=== PATIENT | female | born 1950 | race Hispanic/Latino ===

== ENCOUNTER 2016-08-14 14:48 | Emergency (ER) | payer MEDICARE, OTHER ==
[2016-08-14 14:59] VITALS: RESP 18; TEMP 98.3; O2SAT 97; BMI 27.8
[2016-08-14] MEDS ORDERED: Naproxen 550 mg Tab PO ONE (15:08)
--- NOTE | 2016-08-14 15:16 | ED PDOC ---
Arrival/HPI - General Historian: Patient - History of Present Illness Time/Duration: Prior to Arrival Symptom Onset: Sudden Symptom Course: Unchanged Quality: Aching Context: Work - General Chief Complaint: Headache Time Seen by Provider: 08/14/16 14:53 - History of Present Illness Narrative History of Present Illness (Text): 08/14/16 15:18 Patient is a 65 y/o with PMH of syncope/fall presenting with fall while at work. 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 Patient's not sure if she hit her head. Patient c/o left sided rib pain, left side elbow, shoulder, and knee pain. Patient denies loc, denies cp, sob, n/v/d. (Kari Tao) Past Medical History - Provider Review Nursing Documentation Reviewed: Yes - Travel History Have you recently traveled outside [place] w/in the past 3 mons?: No - Infectious Disease Hx of Infectious Diseases: None - Tetanus Immunization Tetanus Immunization: Up to Date - Reproductive Menopause: Yes - Past Medical History Past Medical History: No Previous - Cardiac Hx Pacemaker: No - Pulmonary Hx Respiratory Disorders: No - Neurological Hx Paralysis: No - HEENT Hx HEENT Disorder: No - Renal Hx Renal Disorder: No - Endocrine/Metabolic Hx Endocrine Disorders: No - Hematological/Oncological Hx Blood Transfusions: No Hx Blood Transfusion Reaction: No - Integumentary Hx Dermatological Disorder: No - Musculoskeletal/Rheumatological Hx Musculoskeletal Disorders: No - Gastrointestinal Hx Gastroesophageal Reflux: Yes - Genitourinary/Gynecological Hx Genitourinary Disorders: No - Psychiatric Hx Emotional Abuse: No Hx Physical Abuse: No Hx Substance Use: No - Surgical History Hx Hysterectomy: Yes - Anesthesia Hx Anesthesia Reactions: No Hx Malignant Hyperthermia: No - Suicidal Assessment Feels Threatened In Home Enviroment: No Family/Social History - Physician Review Nursing Documentation Reviewed: Yes Family/Social History: No Known Family HX Smoking Status: Former Smoker Hx Alcohol Use: Yes (RARE WHEN OUT TO DINNER) Hx Substance Use: No Allergies/Home Meds Allergies/Adverse Reactions: Allergies No Known Allergies Allergy (Verified 08/14/16 14:59) Home Medications: Home Meds Medication Instructions Recorded Confirmed Lansoprazole [Prevacid] 30 mg PO DAILY 07/06/15 08/14/16 Loratadine [Claritin] 10 mg PO DAILY 08/14/16 08/14/16 Review of Systems - Physician Review All systems were reviewed & negative as marked: Yes - Review of Systems Constitutional: Normal Eyes: Normal ENT: Normal Respiratory: Normal Cardiovascular: Normal Gastrointestinal: Normal Genitourinary Female: Normal Musculoskeletal: Other (shoulder, elbow, hip and knee pain ) Skin: Normal Neurological: Headache (mild). absent: Dizziness, Focal Weakness, Gait Changes , Speech Changes, Disequilibrium, Seizure Endocrine: Normal Hemo/Lymphatic: Normal Psychiatric: Normal Physical Exam Vital Signs Reviewed: Yes Temperature: Afebrile Blood Pressure: Normal Pulse: Regular Respiratory Rate: Normal Appearance: Positive for: Well-Appearing, Non-Toxic, Comfortable Pain Distress: None Mental Status: Positive for: Alert and Oriented X 3 - Systems Exam Head: Present: Atraumatic, Normocephalic Pupils: Present: PERRL Conjunctiva: No: Icteric Mouth: Present: Moist Mucous Membranes Neck: Present: Normal Range of Motion. No: Meningeal Signs, MIDLINE TENDERNESS , JVD, Lymphadenopathy Respiratory/Chest: Present: Clear to Auscultation, Good Air Exchange. No: Respiratory Distress, Accessory Muscle Use, Wheezes, Rales, Retracting, Rhonchi , Tachypneic Cardiovascular: Present: Regular Rate and Rhythm, Normal S1, S2. No: Murmurs, Tachycardic, Bradycardic, Rub, Gallop Abdomen: Present: Normal Bowel Sounds. No: Tenderness, Distention, Rebound, Guarding, Scars Upper Extremity: Present: Normal Inspection, NORMAL PULSES, Tenderness (left elbow), Neurovascularly Intact. No: Cyanosis, Edema, Erythema, Deformity Lower Extremity: Present: Normal Inspection, NORMAL PULSES, Normal ROM, Tenderness (left hip), Neurovascularly Intact, Capillary Refill < 2 s. No: Edema, CALF TENDERNESS, Jael's Sign, Erythema, Deformity Neurological: Present: GCS=15 Skin: Present: Warm, Dry, Rashes, Normal Color Psychiatric: Present: Alert, Oriented x 3, Normal Insight, Normal Concentration Medical Decision Making Re-evaluation Time: 16:55 Reassessment Condition: Improved ED Course and Treatment: 08/14/16 16:03 Patient is a 65 y/o with PMH of syncope/fall s/p mechanical fall while at work. r/o fractures. Plan: Left rib x-ray with A-P Left shoulder, elbow, ankle and hip x-ray. 08/14/16 16:53 Patient states the pain has improved. 08/14/16 17:14 Extremities and rib x-ray are all normal, patient to be discharged home. ( Kari Tao) 08/14/16 17:23 pt seen with resident. s/p mechanical fall. imaging neg as read by me. pain controled. ambulatory in nad. advise outpt f/u and return precautions (Octaviano Huang) - RAD Interpretation Narrative RAD Interpretations (Text): 08/14/16 17:18 Normal left rib A/P x-ray Normal left elbow, shoulder, and knee x-ray. (Kari Tao) Radiology Orders: 08/14/16 15:02 ELBOW LEFT 3 VIEWS ROUTINE [RAD] Stat HIP MIN 2V W/ PELVIS LT [RAD] Stat 08/14/16 15:05 KNEE LEFT 2 VIEWS (AP & LAT) [RAD] Stat 08/14/16 15:07 RIBS LEFT & PA CHEST [RAD] Stat 08/14/16 15:32 SHOULDER LEFT [RAD] Stat - Medication Orders Current Medication Orders: Discontinued Medications Acetaminophen (Tylenol 325mg Tab) 650 mg PO STAT STA Stop: 08/14/16 15:34 Last Admin: 08/14/16 15:55 Dose: 650 mg Naproxen (Anaprox Ds) 550 mg PO ONCE ONE Stop: 08/14/16 15:09 Last Admin: 08/14/16 15:10 Dose: Disposition/Present on Arrival - Present on Arrival Any Indicators Present on Arrival: No History of DVT/PE: No History of Uncontrolled Diabetes: No Urinary Catheter: No History of Decub. Ulcer: No History Surgical Site Infection Following: None - Disposition Have Diagnosis and Disposition been Completed?: Yes Disposition Time: 22:13 Patient Plan: Discharge - Disposition Diagnosis: Accident due to mechanical fall without injury Disposition: HOME/ ROUTINE Patient Problems: Current Active Problems Problem Status Onset Accident due to mechanical fall without injury Acute Condition: GOOD Discharge Instructions (ExitCare): Fall Prevention (ED) Additional Instructions: Please follow up with your primary care doctor. Return to the emergency room if symptoms worsens or if you have any other symptoms. Referrals: Senia Black MD [Primary Care Provider] - Follow up with primary
[2016-08-14 16:27] VITALS: BP 130/65; PULSE 75
--- NOTE | 2016-08-14 16:29 | RAD ---
PROCEDURE: Left Hip and pelvis X-ray Radiographs. HISTORY: s/p fall COMPARISON: None. FINDINGS: BONES: Normal. No fracture. JOINTS: Normal. SOFT TISSUES: Normal. OTHER FINDINGS: None. IMPRESSION: Negative study
--- NOTE | 2016-08-15 08:24 | RAD ---
PROCEDURE: Left Knee Radiographs. HISTORY: Pain. COMPARISON: None. FINDINGS: BONES: Normal. No fracture. JOINTS: Normal. No osteoarthritis. JOINT EFFUSION: None. OTHER FINDINGS: None. IMPRESSION: Normal radiographs of the left knee.
--- NOTE | 2016-08-15 08:24 | RAD ---
PROCEDURE: Radiographs of the left elbow. HISTORY: s/p fal COMPARISON: No prior. FINDINGS: BONES: Normal. No fracture. JOINTS: Normal. No osteoarthritis. SOFT TISSUES: Normal. JOINT EFFUSION: None. OTHER FINDINGS: None IMPRESSION: Unremarkable radiographs of the left elbow.
--- NOTE | 2016-08-15 08:25 | RAD ---
PROCEDURE: Radiographs of the Left Shoulder HISTORY: trauma COMPARISON: No prior. FINDINGS: BONES: Normal. No fracture. JOINTS: Normal. Glenohumeral and acromioclavicular joints preserved. No osteoarthritis. SOFT TISSUES: Normal. OTHER FINDINGS: None. IMPRESSION: Normal radiographs of the left shoulder.
--- NOTE | 2016-08-15 08:27 | RAD ---
PROCEDURE: Radiographs of the Chest and Left Ribs. HISTORY: s/p fall COMPARISON: None available. TECHNIQUE: Frontal radiograph of the chest and multiple oblique radiographs of the left ribs were obtained. FINDINGS: LEFT RIBS: No fracture or focal lesion visualized. LUNGS: Clear. PLEURA: No pneumothorax or pleural fluid. CARDIOVASCULAR: Normal sized heart. No pulmonary vascular congestion. OTHER FINDINGS: None. IMPRESSION: Unremarkable radiographs of the chest and left ribs. No left rib fracture.
--- NOTE | 2016-08-16 01:26 | CARD ---
APPROVED REPORT EKG Measurement Heart [id number] PA [id number] <Conclusion> Normal sinus rhythm with sinus arrhythmia Normal ECG
== END 2016-08-14 17:00 | disposition home or self-care (01) ==
LOC: ED 14:48
DX: Z03.89 Encounter for observation for other suspected diseases and conditions ruled out (principal); W01.0XXA Fall on same level from slipping, tripping and stumbling without subsequent striking against object, initial encounter

== ENCOUNTER 2017-04-08 11:05 | Day surgery (SDC) | payer MEDICARE ==
[2017-04-08 10:28] VITALS: BMI 26.3
[2017-04-08 11:24] VITALS: RESP 18
[2017-04-08 11:32] LABS: BASO # 0.04 K/mm3 (0.0-2.0); BASO % 0.5 % (0.0-3.0); EOS # 0.2 (0.0-0.7); EOS % 2.7 % (1.5-5.0); GRAN # 4.29 (1.4-6.5); GRAN % 58.6 % (50.0-68.0); HEMOGLOBIN 13.3 g/dL (12.0-16.0); LYMPH # 2.3 (1.2-3.4); MEAN CELL VOLUME 83.6 fl (80.0-105.0); MEAN CORPUSCULAR HEMOGLOBIN 26.9 pg (25.0-35.0); MEAN CORPUSCULAR HGB CONC 32.2 g/dl (31.0-37.0); MEAN PLATELET VOLUME 9.4 fl (7.0-11.0); MONO # 0.5 (0.1-0.6); MONO % 7.2 % (1.0-6.0); RBC 4.94 10^6/uL (3.5-6.1); RED CELL DISTRIBUTION WIDTH 17.3 % (11.5-14.5); WHITE BLOOD COUNT 7.3 10^3/ul (4.5-11.0)
[2017-04-08] MEDS ORDERED: Lidocaine 2% Inj (20ml) ONE (11:37)
[2017-04-08] MEDS ORDERED: Iodixanol 320 MG/ML 100 ML BOTTLE IV ONE (11:38)
[2017-04-08] MEDS ORDERED: HEPARIN SODIUM/NS 2,000 ML IV ONE (11:38)
[2017-04-08] MEDS ORDERED: Midazolam 2 MG/2 ML VIAL ONE ×2 (11:38→12:49)
[2017-04-08] MEDS ORDERED: Iodixanol 320 MG/ML 200 ML BOTTLE IV ONE (11:38)
[2017-04-08 11:41] LABS: BLOOD UREA NITROGEN 18 mg/dL (7-21); CALCIUM 9.9 mg/dL (8.4-10.5); GFR AFRICAN-AMERICAN > 60; GFR NON-AFRICAN AMERICAN > 60; HDL CHOLESTEROL 80 mg/dL (29-60)
[2017-04-08 11:52] LABS: LDL CHOLESTEROL 104 mg/dL (0-129)
[2017-04-08 11:54] LABS: INR 0.98 (0.93-1.08); PARTIAL THROMBOPLASTIN TIME 31.3 Seconds (25.1-36.5); PROTHROMBIN TIME 11.3 SECONDS (9.4-12.5)
[2017-04-08] MEDS ORDERED: Sodium Chloride 0.9% 1,000 ML IV SCH (13:30)
[2017-04-08 13:49] VITALS: TEMP 98.2
[2017-04-08 15:52] VITALS: O2SAT 98
[2017-04-08 17:50] VITALS: BP 132/78; PULSE 60
--- NOTE | 2017-04-09 00:27 | CARDCATH ---
PROCEDURE DATE: 04/08/2017 HISTORY: The patient is a 66-year-old woman, who presents with chest pain and progressive dyspnea. The patient's past medical history is notable for strong family history with sudden myocardial infarctions in her siblings as well as with her father. 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 The patient underwent a stress test in which there was reproducible exercise-induced angina as well as frequent PVCs. Because of this, cardiac catheterization was recommended. PROCEDURE: Left heart catheterization with coronary arteriography and left ventriculogram. The right femoral artery was cannulated with a 6-Swedish sheath. There were no complications. I performed moderate sedation, which included the presence of an independent trained observer that assisted in monitoring the patient's level of consciousness and physiologic status. After administration of Versed and fentanyl, my intra service time was 15 minutes. The findings on catheterization revealed a left ventricle that contracted normally. Estimated ejection fraction of 60-65%. Her coronary anatomy revealed a right dominant circulation. The RCA was free of significant disease. The left main artery was unremarkable. The LAD revealed minimal intimal irregularities without critical lesions. The second diagonal vessel revealed an ostial 60% stenosis noted. The circumflex artery and obtuse marginal branches were free of significant disease. Angio-Seal was used to close the femoral artery site. The patient tolerated the procedure well. In summary, the procedure revealed a borderline critical lesion of the ostium of the diagonal vessel. Normal LV function was noted with an EF of 60%. Given these findings, the patient's treatment should be medical therapy with daily aspirin as well as a cardiac risk reduction program. In addition, the patient needs to have her lungs evaluated given her life long history of being exposed to passive smoking from her father to her current boyfriend. I have discussed this with the family in detail. Andi Diaz MD
--- NOTE | 2017-04-09 09:48 | CARD ---
APPROVED REPORT EKG Measurement Heart [id number] TN [id number] <Conclusion> Normal sinus rhythm Normal ECG. No change
== END 2017-04-08 18:00 | disposition home or self-care (01) ==
LOC: CATH 11:05
PROVIDERS: ATTEND Internal Medicine Cardiovascular Disease
DX: I20.9 Angina pectoris, unspecified (principal); I49.3 Ventricular premature depolarization; R03.0 Elevated blood-pressure reading, without diagnosis of hypertension; Z82.41 Family history of sudden cardiac death
CPT/HCPCS: 36415; 80048; 80061; 85025; 85610; 85730; 86850; 86870; 86900; 93005; 93458; 99152; 99153; C1760; C1769; C1887 ×2; C2629; J1644; J2250; J3010; J7030; J7040; Q9967

== ENCOUNTER 2018-04-22 16:08 | Emergency (ER) | payer MEDICARE ==
[2018-04-22 16:08] VITALS: BMI 26.3
[2018-04-22 16:31] VITALS: RESP 18
--- NOTE | 2018-04-22 17:05 | ED PDOC ---
Arrival/HPI <Morro Nguyen - Last Filed: 04/22/18 20:30> - General Historian: Patient - History of Present Illness Narrative History of Present Illness (Text): 04/22/18 16:55 67 y/o female with PMH of chronic sinusitis presents to the ED with lightheadedness and bilateral ear ache for one week. Patient was treated by her PMD Dr Black for acute otitis media, just finished a course of antibiotic Cefuroxime but does not feel any improvement. She still have earache b/l, diffuse headache, maxillary tenderness. She denied fever, ear discharge, loss of hearing, cough, CP, SOB, palpitation. She is on meclizine for dizziness for over 2 years but it's not effective at present. Time/Duration: > week Symptom Onset: Gradual Symptom Course: Unchanged Context: Work <Slade Hernández - Last Filed: 04/23/18 13:03> - General Chief Complaint: Dizziness/Lightheaded Time Seen by Provider: 04/22/18 16:35 Past Medical History - Provider Review Nursing Documentation Reviewed: Yes - Infectious Disease Hx of Infectious Diseases: None - Tetanus Immunization Tetanus Immunization: Up to Date - Reproductive Menopause: Yes - Past Medical History Past Medical History: No Previous - Cardiac Hx Cardiac Disorders: No Hx Pacemaker: No - Pulmonary Hx Respiratory Disorders: No - Neurological Hx Paralysis: No - HEENT Hx HEENT Disorder: No - Renal Hx Renal Disorder: No - Endocrine/Metabolic Hx Endocrine Disorders: No - Hematological/Oncological Hx Blood Transfusions: Yes Hx Blood Transfusion Reaction: No - Integumentary Hx Dermatological Disorder: No - Musculoskeletal/Rheumatological Hx Musculoskeletal Disorders: No - Gastrointestinal Hx Gastroesophageal Reflux: Yes - Genitourinary/Gynecological Hx Genitourinary Disorders: No - Psychiatric Hx Emotional Abuse: No Hx Physical Abuse: No Hx Substance Use: No - Surgical History Hx Hysterectomy: Yes - Anesthesia Hx Anesthesia Reactions: No Hx Malignant Hyperthermia: No - Suicidal Assessment Feels Threatened In Home Enviroment: No <Slade Hernández - Last Filed: 04/23/18 13:03> Family/Social History - Physician Review Nursing Documentation Reviewed: Yes Family/Social History: No Known Family HX Smoking Status: Former Smoker Hx Alcohol Use: No Hx Substance Use: No <Slade Hernández - Last Filed: 04/23/18 13:03> Allergies/Home Meds <Morro Nguyen - Last Filed: 04/22/18 20:30> <BettySlade - Last Filed: 04/23/18 13:03> Allergies/Adverse Reactions: Allergies No Known Allergies Allergy (Verified 08/14/16 14:59) Review of Systems - Physician Review All systems were reviewed & negative as marked: Yes - Review of Systems Constitutional: Normal. absent: Fevers, Night Sweats Eyes: Normal ENT: Sinus Congestion, Other (b/l ear ache). absent: Hearing Changes, Tinnitus, TMJ Pain, Sore Throat Respiratory: Normal. absent: SOB, Cough, Sputum, Wheezing Cardiovascular: Normal. absent: Palpitations, Edema Gastrointestinal: Normal. absent: Constipation Genitourinary Female: Normal. absent: Dysuria, Frequency, Hematuria Musculoskeletal: Normal Skin: Normal Neurological: Headache, Dizziness. absent: Focal Weakness, Speech Changes, Facial Droop Endocrine: Normal Hemo/Lymphatic: Normal Psychiatric: Normal <Slade Hernández - Last Filed: 04/23/18 13:03> Physical Exam Vital Signs Temp Pulse Resp BP Pulse Ox 04/22/18 20:00 98.8 F 76 18 134/87 97 04/22/18 18:20 98.9 F 66 18 148/92 H 97 04/22/18 16:23 98.9 F 68 18 158/94 H 98 <Morro Nguyen - Last Filed: 04/22/18 20:30> Vital Signs Reviewed: Yes Vital Signs Temp Pulse Resp BP Pulse Ox 04/22/18 16:23 98.9 F 68 18 158/94 H 98 Temperature: Afebrile Blood Pressure: Normal Pulse: Regular Respiratory Rate: Normal Appearance: Positive for: Well-Appearing, Non-Toxic, Comfortable Pain Distress: None Mental Status: Positive for: Alert and Oriented X 3 - Systems Exam Head: Present: Atraumatic, Normocephalic Pupils: Present: PERRL Extroacular Muscles: Present: EOMI Conjunctiva: Present: Normal Ears: Present: TM Bulging, Fluid. No: TM Perf Mouth: Present: Dry Pharnyx: Present: Normal. No: ERYTHEMA, EXUDATE Nose (External): Present: Atraumatic Nose (Internal): Present: Normal Inspection Neck: Present: Normal Range of Motion Respiratory/Chest: Present: Clear to Auscultation, Good Air Exchange. No: Res piratory Distress Cardiovascular: Present: Regular Rate and Rhythm, Normal S1, S2 Abdomen: Present: Normal Bowel Sounds. No: Tenderness, Distention, Guarding Back: Present: Normal Inspection Upper Extremity: Present: Normal Inspection. No: Cyanosis, Edema Lower Extremity: Present: Normal Inspection. No: Edema Neurological: Present: GCS=15, CN II-XII Intact, Speech Normal, Motor Func Grossly Intact, Normal Sensory Function, Normal Cerebellar Funct, Norm Deep Tendon Reflexes Skin: Present: Warm, Dry, Normal Color. No: Rashes Psychiatric: Present: Alert, Oriented x 3, Normal Insight, Normal Concentration <Slade Hernández - Last Filed: 04/23/18 13:03> Medical Decision Making ED Course and Treatment: 04/22/18 20:31 patient feels much better and ready to go home. patient states that her dizziness has mostly resolved and she would prefer to go home. patient already has meclizine to take at home. will change antibiotic to augmentin to tx sinusitis. 04/22/18 20:31 - Lab Interpretations Lab Results: Total Bilirubin 0.5 mg/dL (0.2-1.3) 04/22/18 18:20 AST 31 U/L (14-36) 04/22/18 18:20 ALT 26 U/L (7-56) 04/22/18 18:20 Alkaline Phosphatase 73 U/L (38-126) 04/22/18 18:20 Total Protein 7.4 g/dL (5.8-8.3) 04/22/18 18:20 Albumin 4.3 g/dL (3.0-4.8) 04/22/18 18:20 Globulin 3.1 gm/dL 04/22/18 18:20 Albumin/Globulin Ratio 1.4 (1.1-1.8) 04/22/18 18:20 - RAD Interpretation Radiology Orders: 04/22/18 17:06 HEAD W/O CONTRAST [CT] Stat MASTOIDS W/O CONTRAST [CT] Stat - Medication Orders Current Medication Orders: Discontinued Medications Acetaminophen (Tylenol 325mg Tab) 650 mg PO STAT STA Stop: 04/22/18 18:19 Last Admin: 04/22/18 18:31 Dose: Not Given Non-Admin Reason: Patient Refused Lorazepam (Ativan) 1 mg IVP ONCE ONE; Protocol Stop: 04/22/18 18:34 Last Admin: 04/22/18 18:49 Dose: 1 mg IVP Administration Document 04/22/18 18:49 LA (Rec: 04/22/18 18:49 LA [id number]) Charges for Administration # of IVP Administrations 1 Ondansetron HCl (Zofran Inj) 4 mg IVP STAT STA Stop: 04/22/18 18:34 Last Admin: 04/22/18 18:49 Dose: 4 mg IVP Administration Document 04/22/18 18:49 LA (Rec: 04/22/18 18:50 LA [id number]) Charges for Administration # of IVP Administrations 1 <Morro Nguyen - Last Filed: 04/22/18 20:30> ED Course and Treatment: 04/22/18 18:34 [facility] called. Patient was trying to get out of bed but she fell on the ground. She is awake , follow command, no neurological focal deficits. She states that she feels dizzy. Still waiting for CT head/maxillofacial/mastoid. Reassessment Condition: Re-examined, Unchanged - EKG Interpretation Interpreted by ED Physician: Yes (NSR @65 bpm) Type: 12 lead EKG Comparison: No previous EKG avail. <Slade Hernández - Last Filed: 04/23/18 13:03> Disposition/Present on Arrival - Disposition Have Diagnosis and Disposition been Completed?: Yes Disposition Time: 20:32 Patient Plan: Admission, Discharge <Morro Nguyen - Last Filed: 04/22/18 20:30> - Present on Arrival Any Indicators Present on Arrival: No History of DVT/PE: No History of Uncontrolled Diabetes: No Urinary Catheter: No History of Decub. Ulcer: No History Surgical Site Infection Following: None - Disposition Have Diagnosis and Disposition been Completed?: Yes Patient Plan: Admission <Slade Hernández - Last Filed: 04/23/18 13:03> - Disposition Diagnosis: Vertigo, Sinusitis Disposition: HOSPITALIZED Condition: STABLE Additional Instructions: return for any new or worsening symptoms. follow up with a ear,nose,throat doctor. Prescriptions: Amoxicillin/Clavulanate [Augmentin 875 MG-125 MG] 1 tab PO BID 10 Days #20 tab Meclizine [Meclizine*] 25 mg PO TID #15 tab Ondansetron [Zofran] 4 mg PO Q8H #12 tab
[2018-04-22 18:21] VITALS: O2SAT 97
[2018-04-22 18:35] LABS: ALB/GLOB RATIO 1.4 (1.1-1.8); ALBUMIN 4.3 g/dL (3.0-4.8); ALT/SGPT 26 U/L (7-56); AST/SGOT 31 U/L (14-36); BLOOD UREA NITROGEN 18 mg/dL (7-21); CALCIUM 9.3 mg/dL (8.4-10.5); GFR NON-AFRICAN AMERICAN > 60
[2018-04-22 18:36] LABS: BASO # 0.02 K/mm3 (0.0-2.0); BASO % 0.3 % (0.0-3.0); EOS # 0.2 (0.0-0.7); EOS % 2.8 % (1.5-5.0); HEMOGLOBIN 12.1 g/dL (12.0-16.0); LYMPH % 30.3 % (22.0-35.0); MEAN CORPUSCULAR HEMOGLOBIN 28.3 pg (25.0-35.0); MEAN CORPUSCULAR HGB CONC 31.8 g/dl (31.0-37.0); MONO # 0.6 (0.1-0.6); MONO % 9.5 % (1.0-6.0); RBC 4.27 10^6/uL (3.5-6.1); RED CELL DISTRIBUTION WIDTH 13.8 % (11.5-14.5); WHITE BLOOD COUNT 6.4 10^3/uL (4.5-11.0)
[2018-04-22 20:01] VITALS: BP 134/87; PULSE 76; TEMP 98.8
--- NOTE | 2018-04-23 10:28 | CT ---
Date of service: 04/22/2018 PROCEDURE: CT HEAD WITHOUT CONTRAST. HISTORY: lightheadedness COMPARISON: Noncontrast head CT performed 04/24/16 TECHNIQUE: Axial computed tomography images were obtained through the head/brain without intravenous contrast. Radiation dose: Total exam DLP = 843.09 mGy-cm. This CT exam was performed using one or more of the following dose reduction techniques: Automated exposure control, adjustment of the mA and/or kV according to patient size, and/or use of iterative reconstruction technique. FINDINGS: HEMORRHAGE: No intracranial hemorrhage. BRAIN: No mass effect or edema. The zhou-white matter differentiation appears intact. Please note that MRI with diffusion imaging is more sensitive in the detection of acute ischemic event. VENTRICLES: No hydrocephalus. CALVARIUM: Unremarkable. PARANASAL SINUSES: Mild opacification of the posterior right ethmoid air cells. Limited visualized paranasal sinuses appear otherwise clear. MASTOID AIR CELLS: Unremarkable as visualized. No inflammatory changes. OTHER FINDINGS: None. IMPRESSION: No acute intracranial pathology identified. Incidental findings as above. Preliminary impression was provided by [employer]
--- NOTE | 2018-04-23 16:37 | CARD ---
APPROVED REPORT Date of service: 04/22/2018 EKG Measurement Heart [id number] <Conclusion> Normal sinus rhythm Low voltage QRS Borderline ECG
--- NOTE | 2018-04-24 09:34 | CT ---
Date of service: 04/22/2018 PROCEDURE: CT OF THE TEMPORAL BONES WITHOUT CONTRAST HISTORY: unresolved otitis media COMPARISON: None available. TECHNIQUE: High resolution axial images of the temporal bones were obtained. Coronal and sagittal reformats were generated. Radiation dose: Total exam DLP = 926.16 mGy-cm. This CT exam was performed using one or more of the following dose reduction techniques: Automated exposure control, adjustment of the mA and/or kV according to patient size, and/or use of iterative reconstruction technique. FINDINGS: RIGHT TEMPORAL BONE: RIGHT MIDDLE EAR: Normal RIGHT INNER EAR: Cochlea: Normal Semicircular canals: Normal RIGHT MASTOID AIR CELLS: Normal RIGHT INTERNAL AUDITORY CANAL: Normal RIGHT EXTERNAL AUDITORY CANAL: Normal RIGHT VESTIBULAR AND COCHLEAR AQUEDUCT: Normal OTHER: LEFT TEMPORAL BONE: LEFT MIDDLE EAR: Normal LEFT INNER EAR: Cochlea: Normal Semicircular canals: Normal LEFT MASTOID AIR CELLS: There is partial opacification and sclerosis of some of the mastoid air cells on the left. The majority of the air cells are well aerated LEFT INTERNAL AUDITORY CANAL: Normal LEFT EXTERNAL AUDITORY CANAL: Normal LEFT VESTIBULAR AND COCHLEAR AQUEDUCTS: Normal OTHER FINDINGS: The report concurs with the preliminary [facility] report. IMPRESSION: There is partial opacification and sclerosis of some of the mastoid air cells on the left. The majority of the air cells are well aerated.
== END 2018-04-22 20:58 | disposition home or self-care (01) ==
LOC: ED 16:08
DX: R42 Dizziness and giddiness (principal); J32.9 Chronic sinusitis, unspecified; Z87.891 Personal history of nicotine dependence
CPT/HCPCS: 70450; 70480; 80053; 83735; 84100; 85025; 93005; 96374; 96375; 99285; J2060; J2405